=== PATIENT | female | born 1990 | race Caucasian/White ===

== ENCOUNTER 2019-10-02 09:07 | Inpatient (IN) | payer OTHER ==
[~2019-10-02 09:07] MED LIST: Bupivacaine 0.25% 10 ML SDV ONE
[2019-10-02] MEDS ORDERED: Sodium Chloride 0.9% 10 ML Syringe FLUSH PRN (18:07)
[2019-10-02] MEDS ORDERED: Ondansetron 4 MG/2 ML SDV IVPUSH PRN (18:07)
[2019-10-02] MEDS ORDERED: Nalbuphine 10 MG/ML Syringe IVPUSH PRN (18:07)
[2019-10-02] MEDS ORDERED: Oxytocin/Lactated Ringers 10 UNIT/1,000 ML BAG IV SCH ×2 (18:15)
[2019-10-02] MEDS: Lactated Ringers 1,000 ML IV SCH (18:30)
[2019-10-03] MEDS: Lactated Ringers 1,000 ML IV SCH ×4 (02:44→08:38)
[2019-10-03] MEDS ORDERED: diphenhydrAMINE 50 MG/ML SDV IVPUSH PRN ×3 (03:24→10:31)
[2019-10-03] MEDS ORDERED: fentaNYL 100 MCG/2 ML SDV EPIDUR PRN (03:24)
[2019-10-03] MEDS ORDERED: ePHEDrine 50 MG/ML SDV IVPUSH PRN ×2 (03:24→10:31)
[2019-10-03] MEDS ORDERED: Bupivacaine/fentaNYL/NS 100 ML Bag EPIDUR PRN (03:24)
--- NOTE | 2019-10-03 06:51 | PCM.LDHP ---
L&D History of Present Illness - General Date of Service: 10/03/19 Admit Problem/Dx: Patient Status Order with Admit Dx/Problem 10/02/19 18:07 Patient Status [ADT] Routine Admission Diagnosis/Problem Admission Diagnosis/Problem Source of Information: Patient History Limitations: Reports: No Limitations - History of Present Illness Introduction:: 1-year-old 000 ELADIO 10/12/2019 patient presented to labor and delivery on late afternoon of 10/02/2019 with history of spontaneous rupture membranes at 1600 hrs. about the same time and she walked into the clinic for her OB visit. Clear fluid. Patient had no contractions at that time. Group B strep was negative on 09/13/19. Examination by Cassandra baron revealed clear fluid pooling in the posterior vagina with no question ruptured membranes. Pitocin was started shortly after patient was placed in her room in labor and delivery. An approximate 6:40 AM amniotomy for bag performed and UPC inserted and heart tone electrode applied at 650 this morning. I talked with patient and about progress and the importance of delivery if possible within 24 hours after rupture membranes are shortly thereafter. So discussed alternatives of section if necessary however trying for vaginal delivery at this time. 03/13/19 blood type O-positive antibody screen negative hemoglobin/hematocrit 13.6/40.5, platelets 291,000. Rubella immune. Urine culture mixed viridiana. HIV and hepatitis B surface antigen negative Chlamydia negative 07/05/2019 hemoglobin/hematocrit 11.2/34.2 platelets 209 2001 hour OB glucose screen 1:15 09/11/2019 group B strep negative. Patient has history of asthma and allergy and exercise-induced Penicillin amoxicillin allergy Prior knee surgery 2009 and multiple hospitalizations for asthma as a child. Pain Score: 8 Improves with: Reports: None Worsens with: Reports: None Associated Symptoms: Reports: N - Related Data Allergies/Adverse Reactions: Allergies Allergy/AdvReac Type Severity Reaction Status Date / Time amoxicillin Allergy Hives Verified 10/02/19 20:21 Penicillins Allergy Hives Verified 10/02/19 20:21 Home Medications: Home Meds Albuterol [Proair HFA] 2 puff INH DAILY 07/26/16 [History] Calcium Carbonate [Calcium] 500 mg PO DAILY 10/02/19 [History] Montelukast Sodium [Singulair] 10 mg PO DAILY 10/02/19 [History] Mv-Mn/Iron/FA/Herbal/Digestive [ One Tablet] 1 tab PO DAILY 10/02/19 [ History] Past Medical History HEENT History: Reports: Impaired Vision Other HEENT History: wears contacts, states requires ears to be flushed out every several months. Has had strep throat in past. Respiratory History: Reports: Asthma PATCH FINISHER History: Reports: Neurological History: Reports: Migraines Hematologic History: Reports: Anemia, Iron Deficiency - Infectious Disease History Infectious Disease History: Reports: Chicken Pox - Past Surgical History Musculoskeletal Surgical History: Reports: Other (See Below) Other Musculoskeletal Surgeries/Procedures:: knee surgery in 2009 Social & Family History - Family History Family Medical History: Noncontributory - Tobacco Use Smoking Status *Q: Never Smoker Second Hand Smoke Exposure: No - Caffeine Use Caffeine Use: Reports: None - Recreational Drug Use Recreational Drug Use: No H&P Review of Systems - Review of Systems: Review Of Systems: See Below General: Reports: No Symptoms HEENT: Reports: No Symptoms Pulmonary: Reports: No Symptoms Cardiovascular: Reports: No Symptoms Gastrointestinal: Reports: No Symptoms Genitourinary: Reports: No Symptoms Musculoskeletal: Reports: No Symptoms Skin: Reports: No Symptoms Psychiatric: Reports: No Symptoms Neurological: Reports: No Symptoms Hematologic/Lymphatic: Reports: No Symptoms Immunologic: Reports: No Symptoms L&D Exam - Exam Exam: See Below - Vital Signs Vital Signs: Last Vital Signs Temp Pulse 85 10/02/19 18:07 Resp 16 10/02/19 18:07 BP 144/79 H 10/02/19 18:07 Pulse Ox 98 10/02/19 18:07 Weight: 212 lb - OB Specific Fundal Height In cm: 38 Contraction Duration (sec): 60 Contraction Frequency (min): 5 Contraction Intensity: Moderate Movement: Active Heart Tones: Present Heart Tones per Min: 140 Heart Rate (FHR) Variability: Moderate (6-25 bmp) Presentation: Vertex Estimated Weight: 7.5 - Puente Score Puente Score Cervix Position: Midposition Puente Score Consistency: Soft Puente Score Effacement: >80% Puente Score Dilation: 3-4 cm Puente Score 's Station: -1 ,0 Puente Score Total: 10 - Exam General: Alert, Oriented HEENT: Conjunctiva Clear, Mucosa Moist & [place], Nares Patent Neck: Supple, Trachea Midline Lungs: Clear to Auscultation, Normal Respiratory Effort Cardiovascular: Regular Rate, Regular Rhythm GI/Abdominal Exam: Normal Bowel Sounds, Soft, Non-Tender Genitourinary: Normal external exam (UPC and heart tone electrode had been placed) Extremities: Normal Inspection, Non-Tender, No Pedal Edema, Normal Capillary Refill Skin: Warm, Dry, Intact Psychiatric: Alert, Normal Affect, Normal Mood - Patient Data Lab Results Last 24 hrs: Laboratory Results - last 24 hr 10/02/19 10/02/19 10/02/19 Range/Units 18:02 18:02 18:46 WBC 15.06 H (3.98-10.04) K/mm3 RBC 3.90 L (3.98-5.22) M/mm3 Hgb 11.8 (11.2-15.7) gm/dl Hct 35.2 (34.1-44.9) % MCV 90.3 (79.4-94.8) fl MCH 30.3 (25.6-32.2) pg MCHC 33.5 (32.2-35.5) g/dl RDW Std Deviation 45.2 (36.4-46.3) fL Plt Count 257 (182-369) K/mm3 MPV 9.5 (9.4-12.3) fl Neut % (Auto) 77.6 H (34.0-71.1) % Lymph % (Auto) 12.7 L (19.3-51.7) % [place] % (Auto) 7.3 (4.7-12.5) % Eos % (Auto) 2.2 (0.7-5.8) Baso % (Auto) 0.2 (0.1-1.2) % Neut # (Auto) 11.68 H (1.56-6.13) K/mm3 Lymph # (Auto) 1.92 (1.18-3.74) K/mm3 [place] # (Auto) 1.10 H (0.24-0.36) K/mm3 Eos # (Auto) 0.33 (0.04-0.36) K/mm3 Baso # (Auto) 0.03 (0.01-0.08) K/mm3 Manual Slide Review Normal smear RPR Non-reactive (NONREACTIVE) Blood Type O POSITIVE Gel Antibody Screen Negative Result Diagrams: 10/02/19 18:46 - Problem List (1) 38 weeks gestation of SNOMED Code(s): 64678737 ICD Code: Z3A.38 - 38 WEEKS GESTATION OF Status: Acute Current Visit: Yes (2) Premature rupture of membranes (PROM), onset of labor before 24 hours, antepartum SNOMED Code(s): 802281966 ICD Code: O42.00 - TEODORA ROM, ONSET LABOR W/N 24 HR OF RUPT, UNSP WEEKS OF GEST Status: Acute Current Visit: Yes Problem List Initiated/Reviewed/Updated: No Orders Last 24hrs: Active Orders 24 hr Category Date Time Status Patient Status [ADT] Routine ADT 10/02/19 18:07 Active Activity as Tolerated [RC] PFP Care 10/02/19 18:07 Active Communication Order [RC] ASDIRECTED Care 10/02/19 18:07 Active Heart Tones [RC] ASDIRECTED Care 10/02/19 18:07 Active Non Stress Test [RC] PER UNIT ROUTINE Care 10/02/19 18:07 Active Notify Provider [RC] ASDIRECTED Care 10/03/19 03:24 Active Notify Provider [RC] PFP Care 10/02/19 18:07 Active Notify Provider [RC] PRN Care 10/02/19 18:07 Active Peripheral IV Care [RC] . DIRECTED Care 10/02/19 18:07 Active Pump Management, Intrathecal [RC] ASDIRECTED Care 10/02/19 18:08 Active Vital Signs [RC] PER UNIT ROUTINE Care 10/02/19 18:07 Active Regular Diet [DIET] Diet 10/02/19 Breakfast Active Bupivacaine/fentaNYL/NS [fentaNYL/Bupivacaine/NS 2 MCG- Med 10/03/19 03:24 Active 0.125% 100 ML] 100 ml EPIDUR ASDIRECTED PRN Lactated Ringers [Ringers, Lactated] 1,000 ml Med 10/02/19 18:15 Active IV ASDIRECTED Nalbuphine [Nubain] Med 10/02/19 18:07 Active 10 mg IVPUSH Q2H PRN Ondansetron [Zofran] Med 10/02/19 18:07 Active 4 mg IVPUSH Q4H PRN Oxytocin/Lactated Ringers [Pitocin in LR 10 Units/1,000 Med 10/02/19 18:15 Active ML] 10 unit in 1,000 ml IV .CONTINUOUS Oxytocin/Lactated Ringers [Pitocin in LR 10 Units/1,000 Med 10/02/19 18:15 Active ML] 10 unit in 1,000 ml IV TITRATE Sodium Chloride 0.9% [Saline Flush] Med 10/02/19 18:07 Active 10 ml FLUSH ASDIRECTED PRN diphenhydrAMINE [Benadryl] Med 10/03/19 03:24 Active 25 mg IVPUSH Q6H PRN ePHEDrine [ePHEDrine sulfate] Med 10/03/19 03:24 Active 5 mg IVPUSH ASDIRECTED PRN fentaNYL [Sublimaze] Med 10/03/19 03:24 Active 100 mcg EPIDUR Q3H PRN Electronic Heart Tones Ext w TOCO [WOMSER] Oth 10/02/19 18:07 Ordered Routine Electronic Heart Tones Internal [WOMSER] Per Unit Oth 10/02/19 18:07 Ordered Routine Peripheral IV Insertion Adult [OM.PC] Routine Oth 10/02/19 18:07 Ordered Resuscitation Status Routine Resus Stat 10/02/19 18:07 Ordered Medication Orders Diphenhydramine HCl (Benadryl) 25 mg IVPUSH Q6H PRN PRN Reason: pruritis Ephedrine Sulfate (Ephedrine Sulfate) 5 mg IVPUSH ASDIRECTED PRN PRN Reason: Hypotension Fentanyl (Sublimaze) 100 mcg EPIDUR Q3H PRN PRN Reason: Pain Last Admin: 10/03/19 03:36 Dose: 100 mcg Fentanyl/Bupivacaine HCl (Fentanyl/Bupivacaine/Ns 2 Mcg-0.125% 100 Ml) 100 ml EPIDUR ASDIRECTED PRN PRN Reason: Pain Last Admin: 10/03/19 03:42 Dose: 100 ml Lactated Ringer's (Ringers, Lactated) 1,000 mls @ 100 mls/hr IV ASDIRECTED DEBORAH Last Admin: 10/03/19 03:43 Dose: 100 mls/hr Infusion: 10/03/19 03:43 Dose: 100 mls/hr Admin: 10/03/19 02:44 Dose: 100 mls/hr Infusion: 10/03/19 02:44 Dose: 100 mls/hr Admin: 10/02/19 18:30 Dose: 100 mls/hr Oxytocin/Lactated Ringer's (Pitocin In Lr 10 Units/1,000 Ml) 10 unit in 1,000 mls @ 12 mls/hr IV TITRATE DEBORAH; Protocol Last Titration: 10/03/19 05:52 Dose: 14 munits/min, 84 mls/hr Titration: 10/03/19 05:00 Dose: 12 munits/min, 72 mls/hr Titration: 10/03/19 04:27 Dose: 10 munits/min, 60 mls/hr Titration: 10/02/19 23:10 Dose: 8 munits/min, 48 mls/hr Titration: 10/02/19 22:30 Dose: 6 munits/min, 36 mls/hr Titration: 10/02/19 20:00 Dose: 4 munits/min, 24 mls/hr Admin: 10/02/19 18:30 Dose: 2 munits/min, 12 mls/hr Oxytocin/Lactated Ringer's (Pitocin In Lr 10 Units/1,000 Ml) 10 unit in 1,000 mls @ 500 mls/hr IV .CONTINUOUS DEBORAH Nalbuphine HCl (Nubain) 10 mg IVPUSH Q2H PRN PRN Reason: Pain Ondansetron HCl (Zofran) 4 mg IVPUSH Q4H PRN PRN Reason: Nausea/Vomiting Sodium Chloride (Saline Flush) 10 ml FLUSH ASDIRECTED PRN PRN Reason: Keep Vein Open Assessment/Plan Comment:: Plan delivery
[2019-10-03] MEDS ORDERED: Acetaminophen 325 MG Tab PO ONE (07:05)
[2019-10-03] MEDS ORDERED: Citric Acid/Sodium Citrate Solution 30 ML Cup PO ONE (08:20)
[2019-10-03] MEDS ORDERED: Azithromycin 500 MG in Sodium Chloride 0.9% 250 ML IV ONE (08:20)
[2019-10-03] MEDS ORDERED: Metoclopramide 10 MG/2 ML SDV IVPUSH ONE (08:20)
[2019-10-03] MEDS ORDERED: ceFAZolin 2 GM in Premix Bag 1 BAG IV ONE (08:20)
[2019-10-03] MEDS ORDERED: Citric Acid/Sodium Citrate Solution 30 ML Cup ONE (08:23)
[2019-10-03] MEDS ORDERED: Metoclopramide 10 MG/2 ML SDV ONE (08:23)
[2019-10-03] MEDS ORDERED: Lidocaine 2% with EPINEPHrine 1:200,000 20 ML SDV ONE (08:28)
[2019-10-03] MEDS ORDERED: Oxytocin 10 Units/1 ML SDV ONE (08:28)
[2019-10-03] MEDS ORDERED: ceFAZolin 1 GM Vial ONE (08:29)
[2019-10-03] MEDS ORDERED: Morphine PF 10 MG/10 ML SDV ONE (08:29)
[2019-10-03] MEDS ORDERED: Bupivacaine 0.5% 30 ML SDV ONE (08:32)
[2019-10-03] MEDS ORDERED: Ketorolac 30 MG/ML SDV ONE (09:21)
[2019-10-03] MEDS ORDERED: Lactated Ringers 1,000 ML ONE (09:28)
--- NOTE | 2019-10-03 09:42 | PCM.POSTAN ---
POST ANESTHESIA ASSESSMENT - MENTAL STATUS Mental Status: Alert, Oriented - VITAL SIGNS Vital Signs: Last Vital Signs Temp 37.8 C 10/03/19 07:12 Pulse 85 10/02/19 18:07 Resp 16 10/02/19 18:07 BP 144/79 H 10/02/19 18:07 Pulse Ox 98 10/02/19 18:07 - RESPIRATORY Respiratory Status: Respiratory Rate WNL, Airway Patent, O2 Saturation Stable, Supplemental Oxygen - CARDIOVASCULAR CV Status: Pulse Rate WNL, Blood Pressure Stable - GASTROINTESTINAL GI Status: No Symptoms - PAIN Pain Score: 0 - POST OP HYDRATION Hydration Status: Adequate & Stable - OBSERVATIONS Free Text/Narrative:: no anesthesia complications noted
--- NOTE | 2019-10-03 09:49 | PCM.PREANE ---
Preanesthetic Assessment - Procedure Proposed Procedure: Emergent - Anesthesia/Transfusion/Family Hx Anesthesia History: Prior Anesthesia Without Reaction Family History of Anesthesia Reaction: No Transfusion History: No Prior Transfusion(s) - Review of Systems General: Fatigue Pulmonary: No Symptoms Cardiovascular: No Symptoms Gastrointestinal: Abdominal Pain ("discomfort") Neurological: Headache (not currently but history of) Other: Reports: None - Physical Assessment NPO Status Date: 10/03/19 NPO Status Time: 08:00 Vital Signs: Last Vital Signs Temp 37.8 C 10/03/19 07:12 Pulse 85 10/02/19 18:07 Resp 16 10/02/19 18:07 BP 144/79 H 10/02/19 18:07 Pulse Ox 98 10/02/19 18:07 Height: 1.75 m Weight: 96.162 kg ASA Class: 2E Mental Status: Alert & Oriented x3 Airway Class: Mallampati = 1 Dentition: Reports: Normal Dentition Thyro-Mental Finger Breadths: 3 Mouth Opening Finger Breadths: 3 ROM/Head Extension: Full Lungs: Clear to Auscultation, Normal Respiratory Effort Cardiovascular: Regular Rate, Regular Rhythm - Lab Values: Laboratory Last Values WBC 15.06 K/mm3 (3.98-10.04) H 10/02/19 18:46 RBC 3.90 M/mm3 (3.98-5.22) L 10/02/19 18:46 Hgb 11.8 gm/dl (11.2-15.7) 10/02/19 18:46 Hct 35.2 % (34.1-44.9) 10/02/19 18:46 MCV 90.3 fl (79.4-94.8) 10/02/19 18:46 MCH 30.3 pg (25.6-32.2) 10/02/19 18:46 MCHC 33.5 g/dl (32.2-35.5) 10/02/19 18:46 RDW Std Deviation 45.2 fL (36.4-46.3) 10/02/19 18:46 Plt Count 257 K/mm3 (182-369) 10/02/19 18:46 MPV 9.5 fl (9.4-12.3) 10/02/19 18:46 Neut % (Auto) 77.6 % (34.0-71.1) H 10/02/19 18:46 Lymph % (Auto) 12.7 % (19.3-51.7) L 10/02/19 18:46 [place] % (Auto) 7.3 % (4.7-12.5) 10/02/19 18:46 Eos % (Auto) 2.2 (0.7-5.8) 10/02/19 18:46 Baso % (Auto) 0.2 % (0.1-1.2) 10/02/19 18:46 Neut # (Auto) 11.68 K/mm3 (1.56-6.13) H 10/02/19 18:46 Lymph # (Auto) 1.92 K/mm3 (1.18-3.74) 10/02/19 18:46 [place] # (Auto) 1.10 K/mm3 (0.24-0.36) H 10/02/19 18:46 Eos # (Auto) 0.33 K/mm3 (0.04-0.36) 10/02/19 18:46 Baso # (Auto) 0.03 K/mm3 (0.01-0.08) 10/02/19 18:46 Manual Slide Review Normal smear 10/02/19 18:46 RPR Non-reactive (NONREACTIVE) 10/02/19 18:02 Blood Type O POSITIVE 10/02/19 18:02 Gel Antibody Screen Negative 10/02/19 18:02 - Allergies Allergies/Adverse Reactions: Allergies Allergy/AdvReac Type Severity Reaction Status Date / Time amoxicillin Allergy Hives Verified 10/02/19 20:21 Penicillins Allergy Hives Verified 10/02/19 20:21 - Anesthesia Plan Pre-Op Medication Ordered: Antacids - Acknowledgements Anesthesia Type Planned: Epidural Pt an Appropriate Candidate for the Planned Anesthesia: Yes Alternatives and Risks of Anesthesia Discussed w Pt/Guardian: Yes Pt/Guardian Understands and Agrees with Anesthesia Plan: Yes PreAnesthesia Questionnaire HEENT History: Reports: Impaired Vision Other HEENT History: wears contacts, states requires ears to be flushed out every several months. Has had strep throat in past. 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: Neurological History: Reports: Migraines Hematologic History: Reports: Anemia, Iron Deficiency - Infectious Disease History Infectious Disease History: Reports: Chicken Pox - Past Surgical History Musculoskeletal Surgical History: Reports: Other (See Below) Other Musculoskeletal Surgeries/Procedures:: knee surgery in 2010 - SUBSTANCE USE Smoking Status *Q: Never Smoker Second Hand Smoke Exposure: No Days Per Week of Alcohol Use: 0 Number of Drinks Per Day: 0 Total Drinks Per Week: 0 Recreational Drug Use History: No - HOME MEDS Home Medications: Home Meds Albuterol [Proair HFA] 2 puff INH DAILY 07/26/16 [History] Calcium Carbonate [Calcium] 500 mg PO DAILY 10/02/19 [History] Montelukast Sodium [Singulair] 10 mg PO DAILY 10/02/19 [History] Mv-Mn/Iron/FA/Herbal/Digestive [ One Tablet] 1 tab PO DAILY 10/02/19 [ History] - CURRENT (IN HOUSE) MEDS Current Meds: Current Medications Diphenhydramine HCl (Benadryl) 25 mg IVPUSH Q6H PRN PRN Reason: pruritis Diphenhydramine HCl (Benadryl) 25 mg IVPUSH Q6H PRN PRN Reason: Itching Ephedrine Sulfate (Ephedrine Sulfate) 5 mg IVPUSH ASDIRECTED PRN PRN Reason: Hypotension Fentanyl (Sublimaze) 100 mcg EPIDUR Q3H PRN PRN Reason: Pain Last Admin: 10/03/19 03:36 Dose: 100 mcg Fentanyl/Bupivacaine HCl (Fentanyl/Bupivacaine/Ns 2 Mcg-0.125% 100 Ml) 100 ml EPIDUR ASDIRECTED PRN PRN Reason: Pain Last Admin: 10/03/19 03:42 Dose: 100 ml Lactated Ringer's (Ringers, Lactated) 1,000 mls @ 100 mls/hr IV ASDIRECTED DEBORAH Last Admin: 10/03/19 08:38 Dose: 100 mls/hr Oxytocin/Lactated Ringer's (Pitocin In Lr 10 Units/1,000 Ml) 10 unit in 1,000 mls @ 12 mls/hr IV TITRATE DEBORAH; Protocol Last Titration: 10/03/19 06:40 Dose: 10 munits/min, 60 mls/hr Oxytocin/Lactated Ringer's (Pitocin In Lr 10 Units/1,000 Ml) 10 unit in 1,000 mls @ 500 mls/hr IV .CONTINUOUS DEBORAH Nalbuphine HCl (Nubain) 10 mg IVPUSH Q2H PRN PRN Reason: Pain Ondansetron HCl (Zofran) 4 mg IVPUSH Q4H PRN PRN Reason: Nausea/Vomiting Sodium Chloride (Saline Flush) 10 ml FLUSH ASDIRECTED PRN PRN Reason: Keep Vein Open Discontinued Medications Acetaminophen (Tylenol) 975 mg PO NOW ONE Stop: 10/03/19 07:06 Last Admin: 10/03/19 07:12 Dose: 975 mg Bupivacaine HCl (Marcaine 0.5%) Confirm Administered Dose 30 ml .ROUTE .STK-MED ONE Stop: 10/03/19 08:33 Cefazolin Sodium (Ancef) Confirm Administered Dose 2 gm .ROUTE .STK-MED ONE Stop: 10/03/19 08:30 Citric Acid/Sodium Citrate (Bicitra Solution) Confirm Administered Dose 30 ml .ROUTE .STK-MED ONE Stop: 10/03/19 08:24 Citric Acid/Sodium Citrate (Bicitra Solution) 30 ml PO ONETIME ONE Stop: 10/03/19 08:21 Last Admin: 10/03/19 08:38 Dose: 30 ml Cefazolin Sodium/Dextrose 2 gm (/ Premix) 50 mls @ 100 mls/hr IV ONETIME ONE Stop: 10/03/19 08:49 Azithromycin 500 mg/ Sodium (Chloride) 250 mls @ 250 mls/hr IV ONETIME ONE Stop: 10/03/19 09:19 Last Admin: 10/03/19 08:38 Dose: 250 mls/hr Lactated Ringer's (Ringers, Lactated) Confirm Administered Dose 1,000 mls @ as directed .ROUTE .STK-MED ONE Stop: 10/03/19 09:29 Ketorolac Tromethamine (Toradol) Confirm Administered Dose 30 mg .ROUTE .STK- MED ONE Stop: 10/03/19 09:22 Lidocaine/Epinephrine (Xylocaine-Mpf 2%-Epi 1:200,000) Confirm Administered Dose 20 ml .ROUTE .STK-MED ONE Stop: 10/03/19 08:29 Metoclopramide HCl (Reglan) Confirm Administered Dose 10 mg .ROUTE .STK-MED ONE Stop: 10/03/19 08:24 Metoclopramide HCl (Reglan) 10 mg IVPUSH ONETIME ONE Stop: 10/03/19 08:21 Last Admin: 10/03/19 08:38 Dose: 10 mg Morphine Sulfate (Duramorph Pf) Confirm Administered Dose 10 mg .ROUTE .STK-MED ONE Stop: 10/03/19 08:30 Oxytocin (Pitocin) Confirm Administered Dose 10 unit .ROUTE .STK-MED ONE Stop: 10/03/19 08:29
--- NOTE | 2019-10-03 10:18 | PCM.OPNOTE ---
- General Post-Op/Procedure Note Date of Surgery/Procedure: 10/03/19 Operative Procedure(s): Primary low segment transverse section Pre Op Diagnosis: 38 weeks EGA, non reassuring heart rate, intolerance of labor Post-Op Diagnosis: Same + nuchal cord X1 tight Primary Surgeon: Clifton Castellano Secondary Surgeon: Ondina Ayala Anesthesia Provider: Layo Crain Reason Senior Business Manager Was Necessary: Assist in surgery, retraction, decrease comorbidity and mortality. Role of Senior Business Manager: Assist in surgery, retraction, decrease comorbidity and mortality. Fluid Replacement, Intraop: 2,000 Output, Urine Amount: 100 EBL in mLs: 500 Drain/Tube Comments:: Reid Condition: Good Free Text/Narrative:: Intake & Output 10/02/19 10/03/19 10/03/19 22:59 06:59 14:59 Intake Total 3000 Balance 3000 Patient was transported to the operating room and placed under epidural anesthesia in the supine position with a wedge under the right hip and right flank. Reid catheter placed to gravity drainage. Vaginal prep performed, Abdominal prep performed. Timeout performed confirming name, date of , section as type of surgery. Ancef 2 g given intravenously as well as 500 mg of azithromycin preop. SCDs in place and functioning prior surgery. Having been prepared and draped in a sterile fashion adequate level of anesthesia was confirmed. [Patient's spouse brought to the operating room]. Injecting 20 mL of 0.5% Marcaine in the area of the planned incision Pfannenstiel incision was made and caried to and through the anterior fascia. Bladder flap was created and pushed caudad. Low segment transverse section was performed delivering a male liveborn at 0907 hrs. on Wednesday weight 3160 grams/6 lbs. 15 oz. Apgars 9/[address] Gomez present at delivery. Cord blood was collected from three-vessel cord and placenta was removed manually. Endometrial cavity was inspected. Sponge, needle, pack count, instrument count correct times one upon closure of the uterus. Uterus was closed in 2 layers first layer running locking suture of 0 Monocryl. Second layer horizontal modified Lembert imbricating suture. Both tubes and ovaries appeared normal. Clots were cleaned from the gutters and posterior cul de sac at the end of the procedure and uterus replaced into the abdominal cavity. Uterine incision reinspected no bleeding. Sponge, needle, pack count, instrument and sharp count correct 2 upon closure the abdominal cavity. The abdominal cavity was closed with #1 PDS running suture. Subcutaneous tissue was closed with interrupted suture 3 of 0 Monocryl, Subcuticular closure with 3-0 Monocryl Samson needle. Dermabond Preneo applied. Clots were cleaned from the vagina at the end procedure. Patient was transported postanesthesia care unit in satisfactory condition. No blood transfusions were required, andt none anticipated unless condition should change.
[2019-10-03] MEDS ORDERED: Sodium Chloride 0.9% 10 ML Syringe FLUSH PRN (10:31)
[2019-10-03] MEDS ORDERED: Ibuprofen 800 MG Tab PO PRN (10:31)
[2019-10-03] MEDS ORDERED: Acetaminophen 325 MG Tab PO PRN (10:31)
[2019-10-03] MEDS ORDERED: Acetaminophen/oxyCODONE 325-5 MG Tab PO PRN (10:31)
[2019-10-03] MEDS ORDERED: Dextrose 5%-Lactated Ringers 1,000 ML IV SCH (10:31)
[2019-10-03] MEDS ORDERED: Naloxone 0.4 MG/ML SDV IVPUSH PRN (10:31)
[2019-10-03] MEDS ORDERED: Docusate Sodium 100 MG Cap PO PRN (10:31)
[2019-10-03] MEDS ORDERED: Ondansetron 4 MG/2 ML SDV IV PRN (10:31)
[2019-10-03] MEDS: Simethicone 80 MG Tab.Chew PO SCH ×3 (14:37→21:34)
[2019-10-03] MEDS: Ketorolac 30 MG/ML SDV IVPUSH SCH ×2 (15:25→21:34)
[2019-10-04] MEDS: Ketorolac 30 MG/ML SDV IVPUSH SCH (03:33)
--- NOTE | 2019-10-04 07:47 | PCM48HPAN ---
Post Anesthesia Note - EVALUATION WITHIN 48HRS OF ANESTHETIC Vital Signs in Normal Range: Yes Patient Participated in Evaluation: Yes Respiratory Function Stable: Yes Airway Patent: Yes Cardiovascular Function Stable: Yes Hydration Status Stable: Yes Pain Control Satisfactory: Yes Nausea and Vomiting Control Satisfactory: Yes Mental Status Recovered: Yes Vital Signs: Last Vital Signs Temp 36.8 C 10/03/19 20:14 Pulse 80 10/04/19 03:34 Resp 16 10/04/19 00:20 BP 113/61 10/04/19 03:34 Pulse Ox 96 10/04/19 03:34 - COMMENTS/OBSERVATIONS Free Text/Narrative:: Doing well. Tolerated this anesthetic better than in the past. No complications noted.
--- NOTE | 2019-10-04 08:04 | PCM.SURGPN ---
- General Info Date of Service: 10/04/19 Functional Status: Reports: Pain Controlled - Review of Systems General: Reports: No Symptoms HEENT: Reports: No Symptoms Pulmonary: Reports: No Symptoms Cardiovascular: Reports: No Symptoms Gastrointestinal: Reports: No Symptoms Genitourinary: Reports: No Symptoms Musculoskeletal: Reports: No Symptoms Skin: Reports: No Symptoms Neurological: Reports: No Symptoms Psychiatric: Reports: No Symptoms - Patient Data Vitals - Most Recent: Last Vital Signs Temp 98.2 F 10/03/19 20:14 Pulse 80 10/04/19 03:34 Resp 16 10/04/19 00:20 BP 113/61 10/04/19 03:34 Pulse Ox 96 10/04/19 03:34 Weight - Most Recent: 212 lb I&O - Last 24 Hours: Intake & Output 10/03/19 10/04/19 10/04/19 22:59 06:59 14:59 Intake Total 300 Output Total 900 2000 Balance -600 -2000 Lab Results Last 24 Hrs: Laboratory Results - last 24 hr 10/04/19 Range/Units 05:35 WBC 14.32 H (3.98-10.04) K/mm3 RBC 3.24 L (3.98-5.22) M/mm3 Hgb 9.5 L D (11.2-15.7) gm/dl Hct 30.1 L (34.1-44.9) % MCV 92.9 (79.4-94.8) fl MCH 29.3 (25.6-32.2) pg MCHC 31.6 L (32.2-35.5) g/dl RDW Std Deviation 46.9 H (36.4-46.3) fL Plt Count 235 (182-369) K/mm3 MPV 9.2 L (9.4-12.3) fl Neut % (Auto) 73.0 H (34.0-71.1) % Lymph % (Auto) 16.5 L (19.3-51.7) % Hernando % (Auto) 7.9 (4.7-12.5) % Eos % (Auto) 2.2 (0.7-5.8) Baso % (Auto) 0.1 (0.1-1.2) % Neut # (Auto) 10.45 H (1.56-6.13) K/mm3 Lymph # (Auto) 2.36 (1.18-3.74) K/mm3 Hernando # (Auto) 1.13 H (0.24-0.36) K/mm3 Eos # (Auto) 0.31 (0.04-0.36) K/mm3 Baso # (Auto) 0.02 (0.01-0.08) K/mm3 Med Orders - Current: Current Medications Acetaminophen (Tylenol) 650 mg PO Q4H PRN PRN Reason: mild pain or fever Diphenhydramine HCl (Benadryl) 25 mg IVPUSH Q6H PRN PRN Reason: Itching or Nausea Docusate Sodium (Colace) 100 mg PO Q12H PRN PRN Reason: Constipation Ephedrine Sulfate (Ephedrine Sulfate) 5 mg IVPUSH SEECOMMENT PRN PRN Reason: Other Ibuprofen (Motrin) 800 mg PO Q8H PRN PRN Reason: mild pain or fever Montelukast Sodium (Singulair) 10 mg PO DAILY DEBORAH Naloxone HCl (Narcan) 0.1 mg IVPUSH SEECOMMENT PRN PRN Reason: Respiratory Depression Ondansetron HCl (Zofran) 4 mg IV Q8H PRN PRN Reason: Nausea/Vomiting Oxycodone/Acetaminophen (Percocet 325-5 Mg) 1 tab PO Q4H PRN PRN Reason: Pain (moderate 4-6) Oxycodone/Acetaminophen (Percocet 325-5 Mg) 2 tab PO Q4H PRN PRN Reason: Pain (severe 7-10) Simethicone (Simethicone) 80 mg PO [facility] Last Admin: 10/03/19 21:34 Dose: 80 mg Sodium Chloride (Saline Flush) 10 ml FLUSH ASDIRECTED PRN PRN Reason: Keep Vein Open Discontinued Medications Acetaminophen (Tylenol) 975 mg PO NOW ONE Stop: 10/03/19 07:06 Last Admin: 10/03/19 07:12 Dose: 975 mg Bupivacaine HCl (Marcaine 0.5%) Confirm Administered Dose 30 ml .ROUTE .STK-MED ONE Stop: 10/03/19 08:33 Last Admin: 10/03/19 09:04 Dose: 20 ml Bupivacaine HCl (Sensorcaine-Mpf 0.25%) 10 ml .ROUTE .STK-MED ONE Stop: 10/02/19 00:01 Cefazolin Sodium (Ancef) Confirm Administered Dose 2 gm .ROUTE .STK-MED ONE Stop: 10/03/19 08:30 Citric Acid/Sodium Citrate (Bicitra Solution) Confirm Administered Dose 30 ml .ROUTE .STK-MED ONE Stop: 10/03/19 08:24 Last Admin: 10/03/19 11:13 Dose: Not Given Citric Acid/Sodium Citrate (Bicitra Solution) 30 ml PO ONETIME ONE Stop: 10/03/19 08:21 Last Admin: 10/03/19 08:38 Dose: 30 ml Diphenhydramine HCl (Benadryl) 25 mg IVPUSH Q6H PRN PRN Reason: pruritis Diphenhydramine HCl (Benadryl) 25 mg IVPUSH Q6H PRN PRN Reason: Itching Ephedrine Sulfate (Ephedrine Sulfate) 5 mg IVPUSH ASDIRECTED PRN PRN Reason: Hypotension Fentanyl (Sublimaze) 100 mcg EPIDUR Q3H PRN PRN Reason: Pain Last Admin: 10/03/19 03:36 Dose: 100 mcg Fentanyl/Bupivacaine HCl (Fentanyl/Bupivacaine/Ns 2 Mcg-0.125% 100 Ml) 100 ml EPIDUR ASDIRECTED PRN PRN Reason: Pain Last Admin: 10/03/19 03:42 Dose: 100 ml Lactated Ringer's (Ringers, Lactated) 1,000 mls @ 100 mls/hr IV ASDIRECTED DEBORAH Last Admin: 10/03/19 08:38 Dose: 100 mls/hr Oxytocin/Lactated Ringer's (Pitocin In Lr 10 Units/1,000 Ml) 10 unit in 1,000 mls @ 12 mls/hr IV TITRATE DEBORAH; Protocol Last Titration: 10/03/19 08:07 Dose: 0 munits/min, 0 mls/hr Oxytocin/Lactated Ringer's (Pitocin In Lr 10 Units/1,000 Ml) 10 unit in 1,000 mls @ 500 mls/hr IV .CONTINUOUS DEBORAH Cefazolin Sodium/Dextrose 2 gm (/ Premix) 50 mls @ 100 mls/hr IV ONETIME ONE Stop: 10/03/19 08:49 Last Admin: 10/03/19 11:13 Dose: Not Given Azithromycin 500 mg/ Sodium (Chloride) 250 mls @ 250 mls/hr IV ONETIME ONE Stop: 10/03/19 09:19 Last Admin: 10/03/19 08:38 Dose: 250 mls/hr Lactated Ringer's (Ringers, Lactated) Confirm Administered Dose 1,000 mls @ as directed .ROUTE .STK-MED ONE Stop: 10/03/19 09:29 Dextrose/Lactated Ringer's (Dextrose 5%-Lactated Ringers) 1,000 mls @ 125 mls/ hr IV ASDIRECTED [facility] Stop: 10/03/19 18:30 Ibuprofen (Motrin) 800 mg PO Q8H PRN PRN Reason: mild pain or fever Ketorolac Tromethamine (Toradol) Confirm Administered Dose 30 mg .ROUTE .STK- MED ONE Stop: 10/03/19 09:22 Ketorolac Tromethamine (Toradol) 30 mg IVPUSH Q6H [facility] Stop: 10/04/19 03:31 Last Admin: 10/04/19 03:33 Dose: 30 mg Lidocaine/Epinephrine (Xylocaine-Mpf 2%-Epi 1:200,000) Confirm Administered Dose 20 ml .ROUTE .STK-MED ONE Stop: 10/03/19 08:29 Metoclopramide HCl (Reglan) Confirm Administered Dose 10 mg .ROUTE .STK-MED ONE Stop: 10/03/19 08:24 Last Admin: 10/03/19 11:13 Dose: Not Given Metoclopramide HCl (Reglan) 10 mg IVPUSH ONETIME ONE Stop: 10/03/19 08:21 Last Admin: 10/03/19 08:38 Dose: 10 mg Morphine Sulfate (Duramorph Pf) Confirm Administered Dose 10 mg .ROUTE .STK-MED ONE Stop: 10/03/19 08:30 Nalbuphine HCl (Nubain) 10 mg IVPUSH Q2H PRN PRN Reason: Pain Albuterol [Proair (Hfa] Pt's Own Med) 0 puff INH DAILY [facility] Ondansetron HCl (Zofran) 4 mg IVPUSH Q4H PRN PRN Reason: Nausea/Vomiting Oxytocin (Pitocin) Confirm Administered Dose 10 unit .ROUTE .STK-MED ONE Stop: 10/03/19 08:29 Sodium Chloride (Saline Flush) 10 ml FLUSH ASDIRECTED PRN PRN Reason: Keep Vein Open - Exam Wound/Incisions: Healing Well General: Alert, Oriented HEENT: Pupils Equal Neck: Supple Lungs: Clear to Auscultation, Normal Respiratory Effort Cardiovascular: Regular Rate, Regular Rhythm GI/Abdominal Exam: Normal Bowel Sounds, Soft, Non-Tender Extremities: Normal Inspection, Non-Tender, No Pedal Edema, Normal Capillary Refill Skin: Warm, Dry, Intact Psy/Mental Status: Alert, Normal Affect, Normal Mood Sepsis Event Note - Evaluation Sepsis Screening Result: No Definite Risk - Focused Exam Vital Signs: Vital Signs Temp Pulse Pulse Resp BP BP Pulse Ox 10/04/19 03:34 80 113/61 96 10/04/19 00:20 78 16 126/73 92 L 10/04/19 00:00 77 16 126/73 97 10/03/19 20:14 98.2 F 83 16 122/69 96 Date Exam was Performed: 10/04/19 Time Exam was Performed: 08:02 - Problem List & Annotations (1) 38 weeks gestation of SNOMED Code(s): 65429360 Code(s): Z3A.38 - 38 WEEKS GESTATION OF Status: Acute Current Visit: Yes (2) Premature rupture of membranes (PROM), onset of labor before 24 hours, antepartum SNOMED Code(s): 226088820 Code(s): O42.00 - TEODORA ROM, ONSET LABOR W/N 24 HR OF RUPT, UNSP WEEKS OF GEST Status: Acute Current Visit: Yes (3) Nuchal cord with compression, delivered, current hospitalization SNOMED Code(s): 882596586, 942912881 Code(s): O69.1XX0 - LABOR AND DELIVERY COMP BY CORD AROUND NECK, W COMPRSN, UNSP Status: Acute Current Visit: Yes - Problem List Review Problem List Initiated/Reviewed/Updated: No - My Orders Last 24 Hours: Active Orders 24 hr Category Date Time Status Activity as Tolerated [RC] .Routine Care 10/03/19 10:31 Active Ambulate [RC] PER UNIT ROUTINE Care 10/03/19 10:31 Active Antiembolic Devices [RC] PER UNIT ROUTINE Care 10/03/19 10:31 Active Bedrest Bathroom Privileges [RC] PER UNIT ROUTINE Care 10/03/19 10:31 Active Communication Order [RC] ASDIRECTED Care 10/03/19 09:41 Inactive Communication Order [RC] PER UNIT ROUTINE Care 10/03/19 10:31 Active Communication Order [RC] PER UNIT ROUTINE Care 10/03/19 10:31 Active Communication Order [RC] PER UNIT ROUTINE Care 10/03/19 10:31 Active Cooling Warming Measures [RC] ASDIRECTED Care 10/03/19 09:41 Inactive Intake and Output [RC] QSHIFT Care 10/03/19 10:31 Active May Shower [RC] PER UNIT ROUTINE Care 10/03/19 10:31 Active Notify Provider Intake and Out [RC] ASDIRECTED Care 10/03/19 10:31 Active Notify Provider [RC] ASDIRECTED Care 10/03/19 09:41 Inactive Oxygen Therapy [RC] ASDIRECTED Care 10/03/19 09:41 Inactive Procedure Site Prep Instruct [RC] ASDIRECTED Care 10/03/19 08:24 Inactive Pulse Oximetry [RC] ASDIRECTED Care 10/03/19 09:41 Inactive RT Incentive Spirometry [RC] Q1HWA Care 10/03/19 10:31 Active Urinary Catheter Removal [RC] Per Unit Routine Care 10/04/19 10:22 Active Verify Patient Consent Obtain [RC] PER UNIT ROUTINE Care 10/03/19 08:24 Inactive Vital Signs [RC] Q15M Care 10/03/19 09:41 Inactive Vital Signs [RC] Q4HR Care 10/03/19 10:31 Active Regular Diet [DIET] Diet 10/03/19 Lunch Active Acetaminophen [Tylenol] Med 10/03/19 10:31 Active 650 mg PO Q4H PRN Acetaminophen/oxyCODONE [Percocet 325-5 MG] Med 10/03/19 10:31 Active 1 tab PO Q4H PRN Acetaminophen/oxyCODONE [Percocet 325-5 MG] Med 10/03/19 10:31 Active 2 tab PO Q4H PRN Docusate Sodium [Colace] Med 10/03/19 10:31 Active 100 mg PO Q12H PRN Ibuprofen [Motrin] Med 10/04/19 09:30 Active 800 mg PO Q8H PRN Montelukast [Singulair] Med 10/04/19 09:00 Active 10 mg PO DAILY Naloxone [Narcan] Med 10/03/19 10:31 Active 0.1 mg IVPUSH SEECOMMENT PRN Ondansetron [Zofran] Med 10/03/19 10:31 Active 4 mg IV Q8H PRN Simethicone Med 10/03/19 13:00 Active 80 mg PO PCBED Sodium Chloride 0.9% [Saline Flush] Med 10/03/19 10:31 Active 10 ml FLUSH ASDIRECTED PRN diphenhydrAMINE [Benadryl] Med 10/03/19 10:31 Active 25 mg IVPUSH Q6H PRN ePHEDrine [ePHEDrine sulfate] Med 10/03/19 10:31 Active 5 mg IVPUSH SEECOMMENT PRN Abdominal Binder [OM.PC] Per Unit Routine Ot 10/03/19 10:31 Ordered Assess Lochia [WOMSER] Per Unit Routine Ot 10/03/19 10:31 Ordered Assess Uterine Involution [WOMSER] Per Unit Routine Ot 10/03/19 10:31 Ordered Breast Pump [WOMSER] Per Unit Routine Ot 10/03/19 10:31 Ordered Convert IV to Saline Lock [OM.PC] Routine Ot 10/03/19 10:31 Ordered Medication Administration Instruction [OM.PC] Routine Ot 10/03/19 10:31 Ordered Peripheral IV Discontinue [OM.PC] Routine Ot 10/03/19 10:31 Ordered Saline Lock Insert [OM.PC] Routine Ot 10/03/19 10:31 Ordered Sequential Compression Device [OM.PC] Per Unit Routine Ot 10/03/19 10:31 Ordered Medication Orders Acetaminophen (Tylenol) 650 mg PO Q4H PRN PRN Reason: mild pain or fever Diphenhydramine HCl (Benadryl) 25 mg IVPUSH Q6H PRN PRN Reason: Itching or Nausea Docusate Sodium (Colace) 100 mg PO Q12H PRN PRN Reason: Constipation Ephedrine Sulfate (Ephedrine Sulfate) 5 mg IVPUSH SEECOMMENT PRN PRN Reason: Other Ibuprofen (Motrin) 800 mg PO Q8H PRN PRN Reason: mild pain or fever Montelukast Sodium (Singulair) 10 mg PO DAILY DEBORAH Naloxone HCl (Narcan) 0.1 mg IVPUSH SEECOMMENT PRN PRN Reason: Respiratory Depression Ondansetron HCl (Zofran) 4 mg IV Q8H PRN PRN Reason: Nausea/Vomiting Oxycodone/Acetaminophen (Percocet 325-5 Mg) 1 tab PO Q4H PRN PRN Reason: Pain (moderate 4-6) Oxycodone/Acetaminophen (Percocet 325-5 Mg) 2 tab PO Q4H PRN PRN Reason: Pain (severe 7-10) Simethicone (Simethicone) 80 mg PO PCBED DEBORAH Last Admin: 10/03/19 21:34 Dose: 80 mg Admin: 10/03/19 18:21 Dose: 80 mg Admin: 10/03/19 14:37 Dose: 80 mg Sodium Chloride (Saline Flush) 10 ml FLUSH ASDIRECTED PRN PRN Reason: Keep Vein Open - Plan Plan (Free Text/Narrative):: Doing well probably home tomorrow.
[2019-10-04] MEDS ORDERED: ALBUTEROL INH SCH (09:00)
[2019-10-04] MEDS: Simethicone 80 MG Tab.Chew PO SCH ×3 (10:23→18:00)
[2019-10-04] MEDS: Montelukast 10 MG Tab PO SCH (10:24)
[2019-10-04] MEDS: Acetaminophen/oxyCODONE 325-5 MG Tab PO PRN ×2 (10:24→18:01)
[2019-10-04] MEDS: Ibuprofen 800 MG Tab PO PRN (18:00)
[2019-10-05] MEDS: Ibuprofen 800 MG Tab PO PRN (06:40)
--- NOTE | 2019-10-05 07:35 | PCM.DCSUM1 ---
Discharge Summary - Hospital Course Free Text/Narrative:: [facility] Post-Op/Procedure Note Patient Name: JULEE DEAN Date of : 86 Patient Status: Inpatient Attending Provider: Clifton Castellano Date: 10/03/19 09:52 Initialization Date: 10/03/19 09:52 Addendum entered and electronically signed by Clifton Castellano MD 10/03/19 12 :46: C/Section was Wednesday not Wednesday10/03/2019 delivery at 0907 Original Note: - General Post-Op/Procedure Note Date of Surgery/Procedure: 10/03/19 Operative Procedure(s): Primary low segment transverse section Pre Op Diagnosis: 38 weeks EGA, non reassuring heart rate, intolerance of labor Post-Op Diagnosis: Same + nuchal cord X1 tight Primary Surgeon: Clifton Castellano Secondary Surgeon: Ondina Ayala Anesthesia Provider: Layo Crain Reason Management Lecturer Was Necessary: Assist in surgery, retraction, decrease comorbidity and mortality. Role of Management Lecturer: Assist in surgery, retraction, decrease comorbidity and mortality. Fluid Replacement, Intraop: 2,000 Output, Urine Amount: 100 EBL in mLs: 500 Drain/Tube Comments:: Reid Condition: Good Free Text/Narrative:: Intake & Output 10/02/19 10/03/19 10/03/19 22:59 06:59 14:59 Intake Total 3000 Balance 3000 Patient was transported to the operating room and placed under epidural anesthesia in the supine position with a wedge under the right hip and right flank. Reid catheter placed to gravity drainage. Vaginal prep performed, Abdominal prep performed. Timeout performed confirming name, date of , section as type of surgery. Ancef 2 g given intravenously as well as 500 mg of azithromycin preop. SCDs in place and functioning prior surgery. Having been prepared and draped in a sterile fashion adequate level of anesthesia was confirmed. [Patient's spouse brought to the operating room]. Injecting 20 mL of 0.5% Marcaine in the area of the planned incision Pfannenstiel incision was made and caried to and through the anterior fascia. Bladder flap was created and pushed caudad. Low segment transverse section was performed delivering a male liveborn at 0907 hrs. on Wednesday weight 3160 grams/6 lbs. 15 oz. Apgars 9/[address] Gomez present at delivery. Cord blood was collected from three-vessel cord and placenta was removed manually. Endometrial cavity was inspected. Sponge, needle, pack count, instrument count correct times one upon closure of the uterus. Uterus was closed in 2 layers first layer running locking suture of 0 Monocryl. Second layer horizontal modified Lembert imbricating suture. Both tubes and ovaries appeared normal. Clots were cleaned from the gutters and posterior cul de sac at the end of the procedure and uterus replaced into the abdominal cavity. Uterine incision reinspected no bleeding. Sponge, needle, pack count, instrument and sharp count correct 2 upon closure the abdominal cavity. The abdominal cavity was closed with #1 PDS running suture. Subcutaneous tissue was closed with interrupted suture 3 of 0 Monocryl, Subcuticular closure with 3-0 Monocryl Samson needle. Dermabond Preneo applied. Clots were cleaned from the vagina at the end procedure. Patient was transported postanesthesia care unit in satisfactory condition. No blood transfusions were required, andt none anticipated unless condition should change. HPI Initial Comments: [facility] Post-Op/Procedure Note Patient Name: JULEE DEAN Date of : 86 Patient Status: Inpatient Attending Provider: Clifton Castellano Date: 10/03/19 09:52 Initialization Date: 10/03/19 09:52 Addendum entered and electronically signed by Clifton Castellano MD 10/03/19 12 :46: C/Section was Wednesday not Wednesday10/03/2019 delivery at 0907 Original Note: - General Post-Op/Procedure Note Date of Surgery/Procedure: 10/03/19 Operative Procedure(s): Primary low segment transverse section Pre Op Diagnosis: 38 weeks EGA, non reassuring heart rate, intolerance of labor Post-Op Diagnosis: Same + nuchal cord X1 tight Primary Surgeon: Clifton Castellano Secondary Surgeon: Ondina Ayala Anesthesia Provider: Layo R Lefor Reason Management Lecturer Was Necessary: Assist in surgery, retraction, decrease comorbidity and mortality. Role of Management Lecturer: Assist in surgery, retraction, decrease comorbidity and mortality. Fluid Replacement, Intraop: 2,000 Output, Urine Amount: 100 EBL in mLs: 500 Drain/Tube Comments:: Reid Condition: Good Free Text/Narrative:: Intake & Output 10/02/19 10/03/19 10/03/19 22:59 06:59 14:59 Intake Total 3000 Balance 3000 Patient was transported to the operating room and placed under epidural anesthesia in the supine position with a wedge under the right hip and right flank. Reid catheter placed to gravity drainage. Vaginal prep performed, Abdominal prep performed. Timeout performed confirming name, date of , section as type of surgery. Ancef 2 g given intravenously as well as 500 mg of azithromycin preop. SCDs in place and functioning prior surgery. Having been prepared and draped in a sterile fashion adequate level of anesthesia was confirmed. [Patient's spouse brought to the operating room]. Injecting 20 mL of 0.5% Marcaine in the area of the planned incision Pfannenstiel incision was made and caried to and through the anterior fascia. Bladder flap was created and pushed caudad. Low segment transverse section was performed delivering a male liveborn at 0907 hrs. on Wednesday weight 3160 grams/6 lbs. 15 oz. Apgars 9/[address] Gomez present at delivery. Cord blood was collected from three-vessel cord and placenta was removed manually. Endometrial cavity was inspected. Sponge, needle, pack count, instrument count correct times one upon closure of the uterus. Uterus was closed in 2 layers first layer running locking suture of 0 Monocryl. Second layer horizontal modified Lembert imbricating suture. Both tubes and ovaries appeared normal. Clots were cleaned from the gutters and posterior cul de sac at the end of the procedure and uterus replaced into the abdominal cavity. Uterine incision reinspected no bleeding. Sponge, needle, pack count, instrument and sharp count correct 2 upon closure the abdominal cavity. The abdominal cavity was closed with #1 PDS running suture. Subcutaneous tissue was closed with interrupted suture 3 of 0 Monocryl, Subcuticular closure with 3-0 Monocryl Samson needle. Dermabond Preneo applied. Clots were cleaned from the vagina at the end procedure. Patient was transported postanesthesia care unit in satisfactory condition. No blood transfusions were required, andt none anticipated unless condition should change. Brief History: [facility] . Post-Op/Procedure Note. Patient Name: JULEE DEAN Record Number: [id number]. Date of : Patient Status: Inpatient. Attending Provider: Clifton Castellanoccount Number: [id number]. Date: 10/03/19 09:52Initialization Date: 10/03/19 09:52. Addendum entered and electronically signed by Clifton Castellano MD 10/03/19 12:46: C/Section was Wednesday not Wednesday10/03/2019 delivery at 0907. Original Note: - General Post-Op/Procedure Note. Date of Surgery/Procedure: . Operative Procedure(s): Primary low segment transverse section. Pre Op Diagnosis: 38 weeks EGA, non reassuring heart rate, intolerance of labor. Post-Op Diagnosis: Same + nuchal cord X1 tight. Primary Surgeon: Clifton Castellano. Secondary Surgeon: Ondina Ayala. Anesthesia Provider: Layo Crain. Reason Management Lecturer Was Necessary: Assist in surgery, retraction, decrease comorbidity and mortality. Role of Management Lecturer: Assist in surgery, retraction, decrease comorbidity and mortality. Fluid Replacement, Intraop: 2,000. Output, Urine Amount: 100. EBL in mLs: 500. Drain/Tube Comments:: Reid. Condition: Good. Free Text/Narrative:: Intake & Output. 10/02/2001/. [id number]:[id number]. Intake [id number]. [id number]. Patient was transported to the operating room and placed under epidural anesthesia in the supine position with a wedge under the right hip and right flank. Reid catheter placed to gravity drainage. Vaginal prep performed, Abdominal prep performed. Timeout performed confirming name, date of , section as type of surgery. Ancef 2 g given intravenously as well as 500 mg of azithromycin preop. SCDs in place and functioning prior surgery. Having been prepared and draped in a sterile fashion adequate level of anesthesia was confirmed. [Patient's spouse brought to the operating room]. Injecting 20 mL of 0.5% Marcaine in the area of the planned incision Pfannenstiel incision was made and caried to and through the anterior fascia. Bladder flap was created and pushed caudad. Low segment transverse section was performed delivering a male liveborn at 0907 hrs. on Wednesday10/03/2019 weight 3160 grams/6 lbs. 15 oz. Apgars 9/[address] Gomez present at delivery. Cord blood was collected from three-vessel cord and placenta was removed manually. Endometrial cavity was inspected. Sponge, needle , pack count, instrument count correct times one upon closure of the uterus. Uterus was closed in 2 layers first layer running locking suture of 0 Monocryl. Second layer horizontal modified Lembert imbricating suture. Both tubes and ovaries appeared normal. Clots were cleaned from the gutters and posterior cul de sac at the end of the procedure and uterus replaced into the abdominal cavity. Uterine incision reinspected no bleeding. Sponge, needle, pack count, instrument and sharp count correct 2 upon closure the abdominal cavity. The abdominal cavity was closed with #1 PDS running suture. Subcutaneous tissue was closed with interrupted suture 3 of 0 Monocryl, Subcuticular closure with 3-0 Monocryl Samson needle. Dermabond Preneo applied. Clots were cleaned from the vagina at the end procedure. Patient was transported postanesthesia care unit in satisfactory condition. No blood transfusions were required, andt none anticipated unless condition should change. Diagnosis: Stroke: No - Discharge Data Discharge Date: 10/05/19 Discharge Disposition: Home, Self-Care 01 Condition: Good - Referral to Home Health Primary Care Physician: Martin Buenrostro MD - Discharge Diagnosis/Problem(s) (1) 38 weeks gestation of SNOMED Code(s): 84065814 ICD Code: Z3A.38 - 38 WEEKS GESTATION OF Status: Acute Current Visit: Yes (2) Premature rupture of membranes (PROM), onset of labor before 24 hours, antepartum SNOMED Code(s): 101752229 ICD Code: O42.00 - TEODORA ROM, ONSET LABOR W/N 24 HR OF RUPT, UNSP WEEKS OF GEST Status: Acute Current Visit: Yes (3) Nuchal cord with compression, delivered, current hospitalization SNOMED Code(s): 037186417, 386737511 ICD Code: O69.1XX0 - LABOR AND DELIVERY COMP BY CORD AROUND NECK, W COMPRSN, UNSP Status: Acute Current Visit: Yes - Patient Summary/Data Operative Procedure(s) Performed: Primary low segment transverse section Complications: None Consults: None Hospital Course: Uneventful - Patient Instructions Diet: Usual Diet as Tolerated Driving: Do Not Drive (2 weeks) Showering/Bathing: May Shower, No Tub Bathing/Swimming (6 weeks) Wound/Incision Care: Keep Operative Site/Wound Site Clean and Dry Notify Provider of: Fever, Increased Pain, Swelling and Redness, Drainage, Nausea and/or Vomiting - Discharge Plan *PRESCRIPTION DRUG MONITORING PROGRAM REVIEWED*: Not Applicable *COPY OF PRESCRIPTION DRUG MONITORING REPORT IN PATIENT LONNIE: Not Applicable Home Medications: Home Meds Albuterol [Proair HFA] 2 puff INH DAILY PRN 07/26/16 [History] Calcium Carbonate [Calcium] 500 mg PO DAILY 10/02/19 [History] Montelukast Sodium [Singulair] 10 mg PO DAILY 10/02/19 [History] Mv-Mn/Iron/FA/Herbal/Digestive [ One Tablet] 1 tab PO DAILY 10/02/19 [ History] Acetaminophen [Tylenol] 650 mg PO Q6H PRN tablet 10/05/19 [Rx] Docusate Sodium [Colace] 100 mg PO Q12H PRN cap 10/05/19 [Rx] Ibuprofen [Motrin] 600 mg PO Q6H PRN tablet 10/05/19 [Rx] Simethicone 80 mg PO PCBED tab.chew 10/05/19 [Rx] Referrals: Martin Buenrostro MD [Primary Care Provider] - (2 weeks) - Discharge Summary/Plan Comment DC Time >30 min.: No - Patient Data Vitals - Most Recent: Last Vital Signs Temp 98.1 F 10/04/19 21:14 Pulse 79 10/04/19 21:14 Resp 14 10/04/19 21:14 BP 136/82 10/04/19 21:14 Pulse Ox 97 10/04/19 21:14 Weight - Most Recent: 212 lb Med Orders - Current: Current Medications Acetaminophen (Tylenol) 650 mg PO Q4H PRN PRN Reason: mild pain or fever Diphenhydramine HCl (Benadryl) 25 mg IVPUSH Q6H PRN PRN Reason: Itching or Nausea Docusate Sodium (Colace) 100 mg PO Q12H PRN PRN Reason: Constipation Ephedrine Sulfate (Ephedrine Sulfate) 5 mg IVPUSH SEECOMMENT PRN PRN Reason: Other Ibuprofen (Motrin) 800 mg PO Q8H PRN PRN Reason: mild pain or fever Last Admin: 10/05/19 06:40 Dose: 800 mg Montelukast Sodium (Singulair) 10 mg PO DAILY [facility] Last Admin: 10/04/19 10:24 Dose: Not Given Naloxone HCl (Narcan) 0.1 mg IVPUSH SEECOMMENT PRN PRN Reason: Respiratory Depression Ondansetron HCl (Zofran) 4 mg IV Q8H PRN PRN Reason: Nausea/Vomiting Oxycodone/Acetaminophen (Percocet 325-5 Mg) 1 tab PO Q4H PRN PRN Reason: Pain (moderate 4-6) Oxycodone/Acetaminophen (Percocet 325-5 Mg) 2 tab PO Q4H PRN PRN Reason: Pain (severe 7-10) Last Admin: 10/04/19 18:01 Dose: 2 tab Simethicone (Simethicone) 80 mg PO PCBED [facility] Last Admin: 10/04/19 18:00 Dose: 80 mg Sodium Chloride (Saline Flush) 10 ml FLUSH ASDIRECTED PRN PRN Reason: Keep Vein Open Discontinued Medications Acetaminophen (Tylenol) 975 mg PO NOW ONE Stop: 10/03/19 07:06 Last Admin: 10/03/19 07:12 Dose: 975 mg Bupivacaine HCl (Marcaine 0.5%) Confirm Administered Dose 30 ml .ROUTE .STK-MED ONE Stop: 10/03/19 08:33 Last Admin: 10/03/19 09:04 Dose: 20 ml Bupivacaine HCl (Sensorcaine-Mpf 0.25%) 10 ml .ROUTE .STK-MED ONE Stop: 10/02/19 00:01 Cefazolin Sodium (Ancef) Confirm Administered Dose 2 gm .ROUTE .STK-MED ONE Stop: 10/03/19 08:30 Citric Acid/Sodium Citrate (Bicitra Solution) Confirm Administered Dose 30 ml .ROUTE .STK-MED ONE Stop: 02/18/20 08:24 Last Admin: 10/03/19 11:13 Dose: Not Given Citric Acid/Sodium Citrate (Bicitra Solution) 30 ml PO ONETIME ONE Stop: 10/03/19 08:21 Last Admin: 10/03/19 08:38 Dose: 30 ml Diphenhydramine HCl (Benadryl) 25 mg IVPUSH Q6H PRN PRN Reason: pruritis Diphenhydramine HCl (Benadryl) 25 mg IVPUSH Q6H PRN PRN Reason: Itching Ephedrine Sulfate (Ephedrine Sulfate) 5 mg IVPUSH ASDIRECTED PRN PRN Reason: Hypotension Fentanyl (Sublimaze) 100 mcg EPIDUR Q3H PRN PRN Reason: Pain Last Admin: 10/03/19 03:36 Dose: 100 mcg Fentanyl/Bupivacaine HCl (Fentanyl/Bupivacaine/Ns 2 Mcg-0.125% 100 Ml) 100 ml EPIDUR ASDIRECTED PRN PRN Reason: Pain Last Admin: 10/03/19 03:42 Dose: 100 ml Lactated Ringer's (Ringers, Lactated) 1,000 mls @ 100 mls/hr IV ASDIRECTED DEBORAH Last Admin: 10/03/19 08:38 Dose: 100 mls/hr Oxytocin/Lactated Ringer's (Pitocin In Lr 10 Units/1,000 Ml) 10 unit in 1,000 mls @ 12 mls/hr IV TITRATE DEBORAH; Protocol Last Titration: 10/03/19 08:07 Dose: 0 munits/min, 0 mls/hr Oxytocin/Lactated Ringer's (Pitocin In Lr 10 Units/1,000 Ml) 10 unit in 1,000 mls @ 500 mls/hr IV .CONTINUOUS DEBORAH Cefazolin Sodium/Dextrose 2 gm (/ Premix) 50 mls @ 100 mls/hr IV ONETIME ONE Stop: 10/03/19 08:49 Last Admin: 10/03/19 11:13 Dose: Not Given Azithromycin 500 mg/ Sodium (Chloride) 250 mls @ 250 mls/hr IV ONETIME ONE Stop: 10/03/19 09:19 Last Admin: 10/03/19 08:38 Dose: 250 mls/hr Lactated Ringer's (Ringers, Lactated) Confirm Administered Dose 1,000 mls @ as directed .ROUTE .STK-MED ONE Stop: 10/03/19 09:29 Dextrose/Lactated Ringer's (Dextrose 5%-Lactated Ringers) 1,000 mls @ 125 mls/ hr IV ASDIRECTED [facility] Stop: 10/03/19 18:30 Ibuprofen (Motrin) 800 mg PO Q8H PRN PRN Reason: mild pain or fever Ketorolac Tromethamine (Toradol) Confirm Administered Dose 30 mg .ROUTE .STK- MED ONE Stop: 10/03/19 09:22 Ketorolac Tromethamine (Toradol) 30 mg IVPUSH Q6H [facility] Stop: 10/04/19 03:31 Last Admin: 10/04/19 03:33 Dose: 30 mg Lidocaine/Epinephrine (Xylocaine-Mpf 2%-Epi 1:200,000) Confirm Administered Dose 20 ml .ROUTE .STK-MED ONE Stop: 10/03/19 08:29 Metoclopramide HCl (Reglan) Confirm Administered Dose 10 mg .ROUTE .STK-MED ONE Stop: 10/03/19 08:24 Last Admin: 10/03/19 11:13 Dose: Not Given Metoclopramide HCl (Reglan) 10 mg IVPUSH ONETIME ONE Stop: 10/03/19 08:21 Last Admin: 10/03/19 08:38 Dose: 10 mg Morphine Sulfate (Duramorph Pf) Confirm Administered Dose 10 mg .ROUTE .STK-MED ONE Stop: 10/03/19 08:30 Nalbuphine HCl (Nubain) 10 mg IVPUSH Q2H PRN PRN Reason: Pain Albuterol [Proair (Hfa] Pt's Own Med) 0 puff INH DAILY [facility] Ondansetron HCl (Zofran) 4 mg IVPUSH Q4H PRN PRN Reason: Nausea/Vomiting Oxytocin (Pitocin) Confirm Administered Dose 10 unit .ROUTE .STK-MED ONE Stop: 10/03/19 08:29 Sodium Chloride (Saline Flush) 10 ml FLUSH ASDIRECTED PRN PRN Reason: Keep Vein Open
[2019-10-05] MEDS: Simethicone 80 MG Tab.Chew PO SCH ×3 (08:48→15:40)
[2019-10-05] MEDS: Montelukast 10 MG Tab PO SCH (11:52)
[2019-10-05 15:44] VITALS: BP 133/74; PULSE 79
== END 2019-10-05 12:40 | disposition home or self-care (01) | DRG 788 ==
LOC: JD.OB 09:07 → OBSVTOIN 10-03 09:07 → JD.OB 10-03 09:10
PROVIDERS: ADMIT Obstetrics & Gynecology; ATTEND Obstetrics & Gynecology
PROC: 10D00Z1 Extraction of Products of Conception, Low, Open Approach (ICD-10-PCS; principal; 2019-10-03)
DX: O42.02 Full-term premature rupture of membranes, onset of labor within 24 hours of rupture (principal); J45.909 Unspecified asthma, uncomplicated; O76 Abnormality in fetal heart rate and rhythm complicating labor and delivery; O69.1XX0 Labor and delivery complicated by cord around neck, with compression, not applicable or unspecified; O99.52 Diseases of the respiratory system complicating childbirth; Z3A.38 38 weeks gestation of pregnancy; Z37.0 Single live birth; Z88.0 Allergy status to penicillin; Z79.51 Long term (current) use of inhaled steroids; Z79.899 Other long term (current) drug therapy
CPT/HCPCS: 01961; 36415; 51702; 59025; 85025; 86592; 86850; 86900; 86901; A9270-GY; J0456; J0690; J1885; J2270; J2590; J2765; J3010; J3490; J7050; J7120

== ENCOUNTER 2021-09-11 01:30 | Inpatient (IN) | payer OTHER ==
[2021-09-11] MEDS ORDERED: Calcium Carbonate 500 MG Tab.Chew PO PRN (03:00)
[2021-09-11] MEDS ORDERED: Lidocaine 1% 50 ML MDV INJECT ONE (03:00)
[2021-09-11] MEDS ORDERED: Oxytocin/Lactated Ringers 10 UNIT/1,000 ML BAG IV SCH ×2 (03:00)
[2021-09-11] MEDS ORDERED: Ondansetron 4 MG/2 ML SDV IVPUSH PRN (03:00)
[2021-09-11] MEDS ORDERED: Nalbuphine 10 MG/1 ML Vial IVPUSH PRN (03:00)
[2021-09-11] MEDS: Lactated Ringers 1,000 ML IV SCH ×3 (04:26→11:24)
[2021-09-11] MEDS ORDERED: Sodium Chloride 0.9% 10 ML Syringe FLUSH SCH (09:00)
[2021-09-11] MEDS ORDERED: fentaNYL 100 MCG/2 ML SDV ONE (10:20)
[2021-09-11] MEDS ORDERED: diphenhydrAMINE 50 MG/ML SDV IVPUSH PRN (10:20)
[2021-09-11] MEDS ORDERED: fentaNYL 100 MCG/2 ML SDV EPIDUR PRN (10:20)
[2021-09-11] MEDS: Bupivacaine/fentaNYL/NS 100 ML Bag EPIDUR PRN ×2 (10:35→19:09)
[2021-09-11] MEDS: ePHEDrine 50 MG/ML SDV IVPUSH PRN ×2 (11:14→11:23)
[2021-09-11] MEDS ORDERED: Bupivacaine 0.25% 10 ML SDV ONE (16:00)
[2021-09-11] MEDS ORDERED: Albuterol 6.7 GM Inhaler INH PRN (20:56)
[2021-09-11] MEDS ORDERED: Witch Hazel Medicated Pads 40/Jar TOP PRN (21:21)
[2021-09-11] MEDS ORDERED: Docusate Sodium 100 MG Cap PO PRN (21:21)
[2021-09-11] MEDS ORDERED: Benzocaine/Menthol 20%-0.5% Spray 78 GM Cannister TOP PRN (21:21)
[2021-09-11] MEDS ORDERED: Acetaminophen 325 MG Tab PO PRN (21:21)
[2021-09-11] MEDS: Ibuprofen 600 MG Tab PO PRN (23:17)
[2021-09-12] MEDS ORDERED: Montelukast 10 MG Tab PO SCH (09:00)
[2021-09-12] MEDS: Ibuprofen 600 MG Tab PO PRN (16:28)
[2021-09-12 19:58] VITALS: BP 124/76; PULSE 74
== END 2021-09-12 19:57 | disposition home or self-care (01) | DRG 807 ==
LOC: JD.OB 03:12 → OBSVTOIN 20:35 → JD.OB 20:36
PROVIDERS: ADMIT Obstetrics & Gynecology; ATTEND Obstetrics & Gynecology
PROC: 10E0XZZ Delivery of Products of Conception, External Approach (ICD-10-PCS; principal; 2021-09-11)
PROC: 10907ZC Drainage of Amniotic Fluid, Therapeutic from Products of Conception, Via Natural or Artificial Opening (ICD-10-PCS; 2021-09-11)
PROC: 0HQ9XZZ Repair Perineum Skin, External Approach (ICD-10-PCS; 2021-09-11)
PROC: 3E0R3BZ Introduction of Anesthetic Agent into Spinal Canal, Percutaneous Approach (ICD-10-PCS; 2021-09-11)
PROC: 00HU33Z Insertion of Infusion Device into Spinal Canal, Percutaneous Approach (ICD-10-PCS; 2021-09-11)
DX: O48.0 Post-term pregnancy (principal); Z37.0 Single live birth; Z3A.40 40 weeks gestation of pregnancy; O99.02 Anemia complicating childbirth; D50.9 Iron deficiency anemia, unspecified; O24.429 Gestational diabetes mellitus in childbirth, unspecified control; O34.211 Maternal care for low transverse scar from previous cesarean delivery; O99.52 Diseases of the respiratory system complicating childbirth; J45.909 Unspecified asthma, uncomplicated; O70.0 First degree perineal laceration during delivery; Z20.822 Contact with and (suspected) exposure to COVID-19
CPT/HCPCS: 01967; 36415; 51702; 59025; 59409; 82947; 85025; 86592; 86850; 86900; 86901; A9270-GY; J2590; J3010; J3490; J7120; U0002